=== PATIENT | female | born 1970 | race Caucasian/White ===

== ENCOUNTER 2018-09-30 08:43 | Outpatient (CLI) | payer BC ==
[~2018-09-30 08:43] MED LIST: EPIN0.3P3 IM
== END 2018-09-30 23:59 | disposition home or self-care (01) ==
LOC: RAD 08:43
PROVIDERS: ATTEND Family Medicine
DX: N93.9 Abnormal uterine and vaginal bleeding, unspecified (principal); I10 Essential (primary) hypertension
CPT/HCPCS: 76830; 76856